=== PATIENT | female | born 1965 | race Caucasian/White ===

== ENCOUNTER 2018-01-04 17:55 | Emergency (ER) | payer SELFPAY ==
[~2018-01-04] VITALS: Ht 160 cm; Wt 63.5 kg
[2018-01-04 17:57] VITALS: BP 128/86
--- NOTE | 2018-01-04 18:03 | NUR ---
Patient ambulated to bed 7. RN evaluating patient at bedside.
--- NOTE | 2018-01-04 18:08 | NUR ---
52 YO F BIB DTR W/ C/O LEFT GREAT TOE PAIN X 7 DAYS. PER DTR PT GOT A PEDICURE AND SINCE HAS HAD PROBLEMS. DENIES INJURY TO THE SITE. DENIES N/V/D/FEVER/CHILLS. PT AAOX4. GCS 15. CMS INTACT. RR EVEN AND UNLABORED. LUNGS CLEAR. HX DENIES RX DENIES
--- NOTE | 2018-01-04 18:12 | NUR ---
Patient being evaluated by physician at bedside.
--- NOTE | 2018-01-04 18:47 | NUR ---
Patient discharged with v/s stable. Written and verbal after care instructions given and explained. Patient alert, oriented and verbalized understanding of instructions. Ambulatory with steady gait. All questions addressed prior to discharge. ID band removed. Patient advised to follow up with PMD. Rx of KEFLEX, NAPROXEN given. Patient educated on indication of medication including possible reaction and side effects. Opportunity to ask questions provided and answered.
[2018-01-04 18:48] VITALS: BP 127/84
== END 2018-01-04 18:47 | disposition home or self-care (01) ==
LOC: MED 17:55
DX: L60.0 Ingrowing nail (principal); L03.032 Cellulitis of left toe
CPT/HCPCS: 99283